=== PATIENT | female | born 1965 | race Two or more races ===

== ENCOUNTER 2019-01-24 05:30 | Day surgery (SDC) | payer OTHER ==
[2019-01-24] MEDS ORDERED: DOXYCYCLINE HY100 M2 PO (10:45)
[2019-01-24] MEDS ORDERED: Tylenol #3 PO (10:45)
== END 2019-01-24 16:25 | disposition home or self-care (01) ==
LOC: CIR.AMB 05:30
DX: N84.0 Polyp of corpus uteri (principal); D25.0 Submucous leiomyoma of uterus

== ENCOUNTER 2020-12-17 06:00 | Day surgery (SDC) | payer OTHER ==
[~2020-12-17 06:00] MED LIST: DOXYCYCLINE HY100 M2 PO; MULTI VITAMIN1 EACH PO; Tylenol #3 PO
[2020-12-17] MEDS ORDERED: NAPR500T14 PO (09:36)
[2020-12-17] MEDS ORDERED: MORGIDOX100 MG PO (10:52)
== END 2020-12-17 14:00 | disposition home or self-care (01) ==
LOC: CIR.AMB 06:00
PROVIDERS: ATTEND Obstetrics & Gynecology
DX: D25.0 Submucous leiomyoma of uterus (principal); N84.0 Polyp of corpus uteri; Z20.822 Contact with and (suspected) exposure to COVID-19